=== PATIENT | male | born 1990 | race Caucasian/White ===

== ENCOUNTER 2020-08-21 03:42 | Emergency (ER) | payer OTHER ==
--- NOTE | 2020-08-21 03:57 | EDM.PDOC ---
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 He has no complaints at this time ED ROS GENERAL - Review of Systems Review Of Systems: See Below Constitutional: Reports: No Symptoms ED EXAM, GENERAL - Physical Exam Exam: See Below Exam Limited By: Other (Blood pressure slightly elevated) Course - Vital Signs Last Recorded V/S: Last Vital Signs Temp 36.9 C 08/21/20 03:58 Pulse 87 08/21/20 03:58 Resp 18 08/21/20 03:58 BP 155/92 H 08/21/20 03:58 Pulse Ox 100 08/21/20 03:58 - Orders/Labs/Meds Orders: Active Orders 24 hr Category Date Time Status ETHANOL BLOOD MEDICAL [CHEM] Stat Lab 08/21/20 03:58 Ordered Departure - Departure Time of Disposition: 04:09 Disposition: Home, Self-Care 01 Clinical Impression: Laboratory procedure - Discharge Information Referrals: PCP,None [Primary Care Provider] - Forms: ED Department Discharge Additional Instructions: Stay safe! Sepsis Event Note (ED) - Focused Exam Vital Signs: Vital Signs Temp Pulse Resp BP Pulse Ox 08/21/20 03:58 36.9 C 87 18 155/92 H 100 - My Orders Last 24 Hours: My Active Orders 08/21/20 03:58 ETHANOL BLOOD MEDICAL [CHEM] Stat - Assessment/Plan Last 24 Hours: My Active Orders 08/21/20 03:58 ETHANOL BLOOD MEDICAL [CHEM] Stat
== END 2020-08-21 04:38 | disposition home or self-care (01) ==
LOC: JD.ED 03:42
DX: Z00.00 Encounter for general adult medical examination without abnormal findings (principal)
CPT/HCPCS: 36415; 80306; 80307; 99282